=== PATIENT | male | born 1990 | race Caucasian/White ===

== ENCOUNTER 2019-01-14 08:08 | Emergency (ER) | payer MEDICAID ==
[~2019-01-14] VITALS: Ht 180.3 cm; Wt 87.0 kg
[2019-01-14] MEDS ORDERED: ACETAMINOPHEN WITH CODEINE 300/30MG TABLET PO ONE (08:30)
[2019-01-14 08:47] VITALS: BP 128/87
== END 2019-01-14 09:40 | disposition home or self-care (01) ==
LOC: ER 08:24
DX: R07.89 Other chest pain (principal); J45.909 Unspecified asthma, uncomplicated; Z87.891 Personal history of nicotine dependence; Z88.0 Allergy status to penicillin
CPT/HCPCS: 71045; 93005; 99283; Z7610

== ENCOUNTER 2019-09-25 06:41 | Emergency (ER) | payer MEDICAID, OTHER ==
[~2019-09-25] VITALS: Ht 185.4 cm; Wt 91.0 kg
[2019-09-25] MEDS ORDERED: IBUPROFEN 600MG TABLET PO ONE (07:15)
[2019-09-25 07:27] VITALS: BP 140/58
== END 2019-09-25 08:45 | disposition home or self-care (01) ==
LOC: ER 06:41
DX: M79.662 Pain in left lower leg (principal); M79.661 Pain in right lower leg; Z88.0 Allergy status to penicillin; V23.4XXA Motorcycle driver injured in collision with car, pick-up truck or van in traffic accident, initial encounter; Y93.89 Activity, other specified; Y92.488 Other paved roadways as the place of occurrence of the external cause
CPT/HCPCS: 73590; 99283